=== PATIENT | male | born 1965 | race Caucasian/White ===

== ENCOUNTER → 2016-10-10 | Outpatient (CLI) | payer BC ==
[~2016-10-10] VITALS: Ht 177.8 cm; Wt 122.5 kg
[~2016-10-10] MED LIST: LIDOCAINE 2% INJ 100 MG/5 ML SDV (FOR ANES.) As Ordered ONE; NS 1,000 ML IV SCH; OMEP40CA2 PO; PROPOFOL 200 MG/20 ML VIAL As Ordered ONE
--- NOTE | 2016-10-10 12:00 | ROOR ---
Patient Name: Guillermo Rogers Procedure Date: 10/10/2016 11:40 AM Date of : 1965 Age: 50 Room: [facility] Gender: Male Note Status: Finalized Procedure: Colonoscopy Indications: High risk colon cancer surveillance: Personal history of colonic polyps, Surveillance: Personal history of adenomatous polyps, inadequate prep on last colonoscopy (less than 1 year ago), Last colonoscopy: August 2015 Providers: Ian SCHULZ MD Referring MD: LEILANI ADEN MD Requesting Provider: Medicines: Monitored Anesthesia Care Complications: No immediate complications. Procedure: Pre-Anesthesia Assessment: - The heart rate, respiratory rate, oxygen saturations, blood pressure, adequacy of pulmonary ventilation, and response to care were monitored throughout the procedure. The Colonoscope was introduced through the anus and advanced to the cecum, identified by appendiceal orifice and ileocecal valve. The colonoscopy was performed without difficulty. The patient tolerated the procedure well. The quality of the bowel preparation was good. Findings: The perianal and digital rectal examinations were normal. (Exam: Complete, Prep: Good or Excellent.) The entire examined colon appeared normal on direct and retroflexion views. Impression: - (Exam: Complete, Prep: Good or Excellent.) - The entire examined colon is normal on direct and retroflexion views. - No specimens collected. Recommendation: - Repeat colonoscopy in 3 years for surveillance. Ian Schulz MD Ian SCHULZ MD 10/10/2016 11:59:57 AM This report has been signed electronically. Number of Addenda: 0 Note Initiated On: 10/10/2016 11:40 AM Estimated Blood Loss: Estimated blood loss: none.
[2016-10-10 12:25] VITALS: BP 141/78
== END | disposition home or self-care (01) ==
LOC: M OPP 09:15
PROVIDERS: ATTEND Internal Medicine Gastroenterology
DX: Z12.11 Encounter for screening for malignant neoplasm of colon (principal); Z86.010 Personal history of colon polyps; R12 Heartburn; R06.2 Wheezing; G47.30 Sleep apnea, unspecified; R06.83 Snoring; J02.0 Streptococcal pharyngitis; Z87.891 Personal history of nicotine dependence; Z79.899 Other long term (current) drug therapy
CPT/HCPCS: 99156; G0105

== ENCOUNTER 2019-10-06 10:12 | Day surgery (SDC) | payer BC ==
[~2019-10-06] VITALS: Ht 177.8 cm; Wt 117.5 kg
[~2019-10-06 10:12] MED LIST changes: -LIDOCAINE 2% INJ 100 MG/5 ML SDV (FOR ANES.) As Ordered ONE; +NS 1,000 ML IV ONE; -NS 1,000 ML IV SCH; -OMEP40CA2 PO; +OMEP40CA97 PO; -PROPOFOL 200 MG/20 ML VIAL As Ordered ONE
[2019-10-06] MEDS ORDERED: LIDOCAINE 2% INJ 100 MG/5 ML SDV (FOR ANES.) As Ordered ONE (11:25)
[2019-10-06] MEDS ORDERED: propofoL 200 MG/20 ML VIAL As Ordered ONE (11:25)
[2019-10-06] MEDS ORDERED: fentaNYL 100 MCG/2 ML INJECTION (J3010) As Ordered ONE (12:20)
--- NOTE | 2019-10-06 13:11 | ROOR ---
Patient Name: Guillermo Rogers Procedure Date: 10/06/2019 12:37 PM Date of : 1965 Age: 53 Room: [facility] Gender: Male Note Status: Finalized Procedure: Upper GI endoscopy Indications: Surveillance for malignancy due to personal history of Patrick's esophagus Providers: Ian SCHULZ MD Referring MD: LEILANI ADEN MD Requesting Provider: Medicines: Monitored Anesthesia Care Complications: No immediate complications. Procedure: Pre-Anesthesia Assessment: - The heart rate, respiratory rate, oxygen saturations, blood pressure, adequacy of pulmonary ventilation, and response to care were monitored throughout the procedure. The Endoscope was introduced through the mouth, and advanced to the second part of duodenum. The upper GI endoscopy was accomplished without difficulty. The patient tolerated the procedure well. Findings: Circumferential salmon-colored mucosa was present from 40 to 42 cm. No other visible abnormalities were present. The maximum longitudinal extent of these esophageal mucosal changes was 2 cm in length. Biopsies were taken with a cold forceps for histology. This was biopsied with a cold forceps for histology. Mucosal variance characterized by ectopic mucosa/inlet patch was found at the cricopharyngeus. Biopsies were taken with a cold forceps for histology. Small Hiatal Hernia. The entire examined stomach was normal. The examined duodenum was normal. Impression: - A 2 cm segment of salmon-colored mucosa consistent with short-segment Patrick's esophagus in distal esophagus. Biopsied. 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 Biopsied. - Small Hiatal Hernia. - Normal stomach. - Normal examined duodenum. Recommendation: - Continue present medications. - Follow an antireflux regimen. - Repeat upper endoscopy in likely 3 yrs, dep on biopsies - Telephone endoscopist for pathology results in 2 weeks. Ian Schulz MD Ian SCHULZ MD 10/06/2019 1:10:55 PM Electronically signed by Ian SCHULZ MD Number of Addenda: 0 Note Initiated On: 10/06/2019 12:37 PM Estimated Blood Loss: Estimated blood loss: none.
--- NOTE | 2019-10-06 13:27 | ROOR ---
Patient Name: Guillermo Rogers Procedure Date: 10/06/2019 12:49 PM Date of : 1965 Age: 53 Room: [facility] Gender: Male Note Status: Finalized Procedure: Colonoscopy Indications: High risk colon cancer surveillance: Personal history of colonic polyps, Last colonoscopy: 2015 Providers: Ian SCHULZ MD Referring MD: LEILANI ADEN MD Requesting Provider: Medicines: Monitored Anesthesia Care Complications: No immediate complications. Procedure: Pre-Anesthesia Assessment: - The heart rate, respiratory rate, oxygen saturations, blood pressure, adequacy of pulmonary ventilation, and response to care were monitored throughout the procedure. The Colonoscope was introduced through the anus and advanced to the terminal ileum, with identification of the appendiceal orifice and IC valve. The colonoscopy was performed without difficulty. The patient tolerated the procedure well. The quality of the bowel preparation was good. Findings: The perianal and digital rectal examinations were normal. The colon (entire examined portion) appeared normal. (previous polypectomy site at the appendiceal orifice is normal) Internal hemorrhoids were found during retroflexion. The hemorrhoids were moderate. Retroflexion in the right colon was performed. Impression: - The entire colon is normal. - Internal hemorrhoids. - No specimens collected. Recommendation: - Repeat colonoscopy in 5 years for surveillance. Ian Schulz MD Ian SCHULZ MD 10/06/2019 1:27:19 PM Electronically signed by Ian SCHULZ MD Number of Addenda: 0 Note Initiated On: 10/06/2019 12:49 PM Estimated Blood Loss: Estimated blood loss: none.
[2019-10-06 13:50] VITALS: BP 116/83
== END 2019-10-06 13:59 | disposition home or self-care (01) ==
LOC: M OPP 10:12
PROVIDERS: ATTEND Internal Medicine Gastroenterology
DX: Z12.11 Encounter for screening for malignant neoplasm of colon (principal); Z86.010 Personal history of colon polyps; Z80.0 Family history of malignant neoplasm of digestive organs; K64.8 Other hemorrhoids; K22.70 Barrett's esophagus without dysplasia; K44.9 Diaphragmatic hernia without obstruction or gangrene; K22.8 Other specified diseases of esophagus; G47.30 Sleep apnea, unspecified; Z87.891 Personal history of nicotine dependence
CPT/HCPCS: 43239; 45378; 88305; J3010

== ENCOUNTER 2022-11-22 11:11 | Day surgery (SDC) | payer BC ==
[~2022-11-22] VITALS: Ht 177.8 cm; Wt 123.3 kg
[~2022-11-22 11:11] MED LIST changes: +AVOD0.5C PO; +LISI10TA22 PO; +OMEP40CA4 PO; -OMEP40CA97 PO; +SEMA0.252; +TAMS1CAP17 PO
[2022-11-22] MEDS ORDERED: LIDOCAINE 2% 100MG/5ML SDV (FOR ANES.) As Ordered ONE (12:39)
[2022-11-22] MEDS ORDERED: propofoL 200 MG/20 ML VIAL As Ordered ONE (12:39)
[2022-11-22 13:16] VITALS: BP 120/73
== END 2022-11-22 13:25 | disposition home or self-care (01) ==
LOC: M OPP 11:11
PROVIDERS: ATTEND Internal Medicine Gastroenterology
DX: K22.70 Barrett's esophagus without dysplasia (principal); Z80.0 Family history of malignant neoplasm of digestive organs; Z87.891 Personal history of nicotine dependence; Z79.899 Other long term (current) drug therapy